=== PATIENT | female | born 1930 | race Caucasian/White ===

== ENCOUNTER 2016-09-25 17:18 | Emergency (ER) | payer MEDICARE, BC ==
[~2016-09-25 17:18] MED LIST: ALPRAZOLAM PO; AMLODIPINE BESY10 MG PO; ASPIRIN EC81 M1 PO; BENICAR HCT 40-1 TA2 PO; BENICAR HCT 40-1 TAB PO; BENICAR PO; BRILINTA90 MG PO; COREG3.125 MG PO; EVISTA60 MG PO; HYZAAR PO; IBUPROFEN PO; METOPROLOL SUCC25 MG PO; MULTI VITAMIN1 EACH PO; MULTIVITAMINS1 EAC2 PO; NEXIUM PO; NORVASC PO; OMEPRAZOLE20 M2 PO; OYSTER CALCIUM500 MG PO; PRILOSEC20 MG DOB; SERTRALINE HCL25 M2 PO; SIMVASTATIN40 MG PO; ZOCOR PO; ZOLOFT50 MG PO
== END 2016-09-25 18:22 | disposition home or self-care (01) ==
LOC: CFTX 17:18 → CED 17:18 → CFTX 17:38
DX: H92.22 Otorrhagia, left ear (principal); I10 Essential (primary) hypertension
CPT/HCPCS: 99282